=== PATIENT | male | born 1965 | race Caucasian/White ===

== ENCOUNTER 2017-01-07 05:44 | Day surgery (SDC) | payer BC ==
--- NOTE | ~2017-01-07 | EGD ---
EGD REPORT [facility] [address] [place] [id number] NAME: SAMINA RASHID : [birth year] STATUS : REG [facility]#: [id number] AGE: 51 ADM/REG DATE : 01/07/17 MR#: [id number] REPORT SERV DATE: 01/07/17 DICTATED BY: TANJA DAVISON. DATE: 01/07/17 REPORT STATUS : Draft TRANSCRIBED BY: [facility] DATE: 01/07/17 [facility] Patient Name: Samina Rashid Date of : 1965 Attending MD: TANJA DAVISON MD Procedure Date No Time: 01/07/2017 Procedure: Colonoscopy Indications: High risk colon CA surveillance: Personal history multiple (3 or more) adenomas; last exam 2013. Patient Profile: Informed consent was obtained from the patient by me prior to the procedure. Risks, benefits, and alternatives were discussed including the risk of bleeding, perforation, infection, reaction to medicine, missed lesion, and cardiopulmonary complications. Medicines: Monitored Anesthesia Care Complications: No immediate complications. Procedure: Pre-Anesthesia Assessment: - ASA Grade Assessment: II - A patient with mild systemic disease. After I obtained informed consent, the scope was passed under direct vision. Throughout the procedure, the patient's blood pressure, pulse, and oxygen saturations were monitored continuously. The PCF [id number] was introduced through the anus and advanced to the cecum, identified by appendiceal orifice and ileocecal valve. The colonoscope was slowly withdrawn with careful examination all mucosal surfaces including specific attention around flexures and tip deflection behind folds; retroflexion performed in rectum. The colonoscopy was performed without difficulty. The patient tolerated the procedure well. The quality of the bowel preparation was adequate. The ileocecal valve, appendiceal orifice and rectum were photographed. Findings: A sessile polyp was found in the ascending colon. The polyp was 15 mm in size. The polyp was removed with a hot snare in one piece. Resection and retrieval were complete. A flat polyp was found in the cecum. The polyp was 7 mm in size. The polyp was removed with a cold biopsy forceps. Resection and retrieval were complete. A sessile polyp was found in the ascending colon. The polyp was 3 mm in size. The polyp was removed with a cold biopsy forceps. Resection and retrieval were complete. A flat polyp was found in the transverse colon. The polyp was 5 mm in EGD REPORT [address] [place]. [address] NAME: SAMINA RASHID : [birth year] STATUS : REG [facility]#: [id number] AGE: 51 ADM/REG DATE : 01/07/17 MR#: [id number] REPORT SERV DATE: 01/07/17 DICTATED BY: TANJA DAVISON DATE: 01/07/17 REPORT STATUS : Draft TRANSCRIBED BY: [employer] [facility] DATE: 01/07/17 size. The polyp was removed with a cold biopsy forceps. Resection and retrieval were complete. Three flat polyps were found in the rectum. The polyps were 3 to 5 mm in size. These polyps were removed with a cold biopsy forceps. Resection and retrieval were complete. Internal hemorrhoids were found during retroflexion and were mild. Impression: - One 15 mm polyp in the ascending colon. Resected and retrieved. - One 7 mm polyp in the cecum. Resected and retrieved. - One 3 mm polyp in the ascending colon. Resected and retrieved. - One 5 mm polyp in the transverse colon. Resected and retrieved. - Three 3 to 5 mm polyps in the rectum. Resected and retrieved. - Internal hemorrhoids. Recommendation: - Patient has a contact number available for emergencies. The signs and symptoms of potential delayed complications were discussed with the patient. Return to normal activities tomorrow. Written discharge instructions were provided to the patient. - Regular diet. - Continue present medications. - Await pathology results. - Repeat colonoscopy for surveillance based on pathology results. - No aspirin, ibuprofen, naproxen, or other non-steroidal anti-inflammatory drugs for 2 weeks after polyp removal. Procedure Code(s): --- Professional --- 78617, Colonoscopy, flexible, proximal to splenic flexure; with removal of tumor(s), polyp(s), or other lesion(s) by snare technique 41488, 59, Colonoscopy, flexible, proximal to splenic flexure; with biopsy, single or multiple Diagnosis Code(s): --- Professional --- K62.1, Rectal polyp D12.3, Benign neoplasm of transverse colon D12.0, Benign neoplasm of cecum D12.2, Benign neoplasm of ascending colon K64.8, Other hemorrhoids Z86.010, Personal history of colonic polyps EGD REPORT [facility] [address] [address] NAME: SAMINA RASHID : [birth year] STATUS : REG [facility]#: [id number] AGE: 51 ADM/REG DATE : 01/07/17 MR#: [id number] REPORT SERV DATE: 01/07/17 DICTATED BY: TANJA DAVISON. DATE: 01/07/17 REPORT STATUS : Draft TRANSCRIBED BY: [employer] DATE: 01/07/17 CPT copyright 2013 [employer]. All rights reserved. The codes documented in this report are preliminary and upon promotions executive producer review may be revised to meet current compliance requirements. TANJA DAVISON MD 01/07/2017 7:34 AM This report has been signed electronically. Number of Addenda: 0 Note Initiated On: 01/07/2017 7:01 AM Scope Withdrawal Time 0 hours 10 minutes 6 seconds [address] [id number]
[~2017-01-07 05:44] MED LIST: ASAB PO; CHOL MED PO; CLARINEX D OR; CLARINEX5 MG PO; COQ OR; COQ10100 MG OR; ENDOCET1 TA3 PO; ENDOCET1 TAB PO; FISH-EPA1000 MG PO; HYZAAR 50/12.51 TAB PO; MOBIC15 MG PO; MUCINEX600 MG PO; NASONEX NAS; PRILO PO; Z-PAK PO; ZOCOR20 PO
== END 2017-01-07 23:59 | disposition home health service (06) ==
LOC: DMU 05:44
PROVIDERS: Internal Medicine Gastroenterology
PROC: 0DBP8ZX Excision of Rectum, Via Natural or Artificial Opening Endoscopic, Diagnostic (ICD-10-PCS; 2017-01-07)
PROC: 0DBL8ZX Excision of Transverse Colon, Via Natural or Artificial Opening Endoscopic, Diagnostic (ICD-10-PCS; 2017-01-07)
PROC: 0DBK8ZX Excision of Ascending Colon, Via Natural or Artificial Opening Endoscopic, Diagnostic (ICD-10-PCS; 2017-01-07)
PROC: 0DBK8ZZ Excision of Ascending Colon, Via Natural or Artificial Opening Endoscopic (ICD-10-PCS; principal; 2017-01-07 07:00)
PROC: 0DBH8ZX Excision of Cecum, Via Natural or Artificial Opening Endoscopic, Diagnostic (ICD-10-PCS; 2017-01-07 07:00)
DX: Z12.11 Encounter for screening for malignant neoplasm of colon (principal); D12.0 Benign neoplasm of cecum; D12.2 Benign neoplasm of ascending colon; K62.1 Rectal polyp; K64.8 Other hemorrhoids; I10 Essential (primary) hypertension; G47.33 Obstructive sleep apnea (adult) (pediatric); K21.9 Gastro-esophageal reflux disease without esophagitis; G43.909 Migraine, unspecified, not intractable, without status migrainosus; M19.90 Unspecified osteoarthritis, unspecified site; E78.00 Pure hypercholesterolemia, unspecified; Z86.010 Personal history of colon polyps; Z88.0 Allergy status to penicillin; Z79.899 Other long term (current) drug therapy; F17.210 Nicotine dependence, cigarettes, uncomplicated; Z87.442 Personal history of urinary calculi; Z98.890 Other specified postprocedural states
CPT/HCPCS: 88305